=== PATIENT | male | born 1955 | race African-American/Black ===

== ENCOUNTER → 2023-12-21 | Outpatient (REF) | payer OTHER ==
[~2023-12-21] MED LIST: ALLOPURINOL100 MG PO; ASPIRIN81 MG PO; ATORVASTATIN CA20 MG PO; FLOMAX0.4 MG PO; LISINOPRIL10 MG PO; METFORMIN HCL500 MG PO; MULTI-VITAMIN1 EACH PO; VITAMIN D31250 MCG
[2023-12-21 14:04] LABS: CREATININE, SERUM 0.95 mg/dL (0.72-1.25)
== END ==
LOC: CT 13:08
PROVIDERS: ATTEND Nurse Practitioner Family
DX: R19.5 Other fecal abnormalities (principal); R74.8 Abnormal levels of other serum enzymes; Z80.0 Family history of malignant neoplasm of digestive organs
CPT/HCPCS: 36415; 74177; 82565; 84520